=== PATIENT | male | born 1955 | race Caucasian/White ===

== ENCOUNTER → 2016-07-22 | Outpatient (CLI) | payer OTHER ==
--- NOTE | 2016-07-22 15:58 | XCELERA REPORT ---
[address] [address] Lower Extremity Arterial Evaluation Name: RACHELL MENDOZA Age: 61 yrs Gender: Male : 1955 Patient Status: Outpatient Patient Location: Study Date: 07/22/2016 02:18 PM Procedure: A color flow and duplex scan of the lower extremity arteries was performed bilaterally with velocity and waveform anaylsis. Ankle brachial indicies performed. Reason For Study: RIGHT CALF ULCER Ordering Physician: FERNANDO WALLS Performed By: Federico Nichols Measurements and Calculations Right Left MARKETING PROFESSOR PSV 142.2 154.5 cm/sec Prox PFA PSV -75.5 -102.0 cm/sec Dist SFA PSV -109.4 -131.3 cm/sec Dist Pop A PSV 156.3 124.1 cm/sec Dist CURTIS PSV -117.5 122.6 cm/sec Dist IN FLIGHT REFUELING OPERATOR PSV -120.1 128.9 cm/sec Syed Pedis PSV -207.7 117.1 cm/sec Right Side Arterial Evaluation Normal velocity and triphasic waveforms noted from the Common Femoral artery to the infrageniculate vessels. 0 % stenosis noted. Ankle Brachial index was not obtainable, non compressible. Left Side Arterial Evaluation Normal velocity and triphasic waveforms noted from the Common Femoral artery to the infrageniculate vessels. 0 % stenosis noted. Ankle Brachial index was not obtainable, non compressible. Interpretation Summary No hemodynamically significant lesions in the bilateral lower extremities, on duplex imaging, at rest. : FERNANDO WALLS > Fernando Walls
--- NOTE | 2016-07-22 16:37 | XCELERA REPORT ---
[address] [address] Lower Extremity Venous Evaluation Name: RACHELL MENDOZA Age: 61 yrs Gender: Male : 1955 Patient Status: Outpatient Patient Location: Study Date: 07/22/2016 02:35 PM Procedure: A bilateral duplex scan of the lower extremity veins was performed. The evaluation included responses to compression and other maneuvers with patient in the supine and standing positions to assess venous insufficiency. Reason For Study: RIGHT CALF ULCER Ordering Physician: FERNANDO WALLS Performed By: Federico Nichols Right Sided Venous Evaluation Deep venous system evaluation shows patent veins with significant reflux identified. 3.3 second reflux in the CFV. Sapheno Femoral junction:no reflux. Greater Saphenous vein, Proximal thigh: reflux: no reflux. Greater Saphenous vein, mid thigh: reflux: no reflux. Greater Saphenous vein, Distal thigh: reflux:no reflux. Greater Saphenous vein, Proximal below knee: reflux: none Greater Saphenous vein, Mid below knee: reflux: none. Greater Saphenous vein, Distal below knee: reflux: no reflux. No significant Perforators identified. Subcutaneous edema noted in the leg, on ultrasound. Left Sided Venous Evaluation Deep venous system evaluation shows patent veins with significant reflux identified. 1.6 second reflux in the Popliteal vein. Sapheno Femoral junction:no reflux. Greater Saphenous vein, Proximal thigh: reflux: no reflux. Greater Saphenous vein, mid thigh: reflux: no reflux. Greater Saphenous vein, Distal thigh: reflux:no reflux. Greater Saphenous vein, Proximal below knee: reflux: none Greater Saphenous vein, Mid below knee: reflux: none. Greater Saphenous vein, Distal below knee: reflux: no reflux. No significant Perforators identified. Subcutaneous edema noted in the leg, on ultrasound. Interpretation Summary No duplex evidence of DVT or obstruction in the bilateral lower extremities. Limited deep reflux, bilaterally as noted. : FERNANDO WALLS > Fernando Walls
== END ==
LOC: SP 14:09
PROVIDERS: ATTEND Surgery
DX: L97.212 Non-pressure chronic ulcer of right calf with fat layer exposed (principal)
CPT/HCPCS: 93925; 93970

== ENCOUNTER → 2017-04-24 | Outpatient (CLI) | payer OTHER ==
[2017-04-24 15:25] LABS: ABSOLUTE BASOPHILS # (AUTO) 0.1 10^3/uL (0.0-0.2); ABSOLUTE EOSINOPHILS # (AUTO) 0.5 10^3/uL (0.0-0.6); ABSOLUTE MONOCYTES (AUTO) 0.6 10^3/uL (0.1-1.4); ABSOLUTE NEUT (AUTO) 5.2 10^3/uL (1.7-8.2); BASOPHILS % (AUTO) 0.6 % (0-2); EOSINOPHILS % (AUTO) 5.6 % (0-6); HEMATOCRIT 41.4 % (37.9-51.0); HEMOGLOBIN 13.9 g/dL (13.5-17.0); LYMPHOCYTES % (AUTO) 24.5 % (13-45); MEAN CORPUSCULAR HEMOGLOBIN 31.5 pg (27.0-33.4); MEAN CORPUSCULAR HGB CONC 33.6 g/dL (32.0-36.0); MEAN CORPUSCULAR VOLUME 94 fl (80-97); MONOCYTES % (AUTO) 7.2 % (3-13); PLATELET COUNT 241 10^3/uL (150-450); RED BLOOD COUNT 4.41 10^6/uL (4.35-5.55); RED CELL DISTRIBUTION WIDTH 14.8 % (11.5-14.0); SEGMENTED NEUTROPHILS % (AUTO) 62.1 % (42-78); TOTAL CELLS COUNTED % (AUTO) 100 %; WHITE BLOOD COUNT 8.3 10^3/uL (4.0-10.5)
[2017-04-24 16:16] LABS: ALANINE AMINOTRANSFERASE 27 U/L (21-72); ALKALINE PHOSPHATASE 80 U/L (38-126); ANION GAP 11 (5-19); ASPARTATE AMINO TRANSFERASE 30 U/L (17-59); BILIRUBIN,DIRECT 0.4 mg/dL (0.0-0.4); BILIRUBIN,TOTAL 0.6 mg/dL (0.2-1.3); BLOOD UREA NITROGEN 25 mg/dL (7-20); CALCIUM 9.5 mg/dL (8.4-10.2); CARBON DIOXIDE 26 mmol/L (22-30); CHLORIDE 103 mmol/L (98-107); GLUCOSE 113 mg/dL (75-110); POTASSIUM 4.9 mmol/L (3.6-5.0); SODIUM 140.1 mmol/L (137-145); TOTAL PROTEIN 7.4 g/dL (6.3-8.2)
== END ==
LOC: WC 14:07
PROVIDERS: ATTEND Surgery
DX: L97.212 Non-pressure chronic ulcer of right calf with fat layer exposed (principal)
CPT/HCPCS: 36415; 80053; 85025

== ENCOUNTER 2018-12-17 17:52 | Emergency (ER) | payer OTHER ==
[2018-12-17 18:58] VITALS: BP 122/68
--- NOTE | 2018-12-17 19:26 | ER Document Report ---
ED Medical Screen (RME) - General Chief Complaint: Leg Pain Stated Complaint: LEG PAIN Time Seen by Provider: 12/17/18 19:23 Primary Care Provider: FERNANDO MATOS MD [Primary Care Provider] - Follow up as needed Mode of Arrival: Wheelchair Information source: Patient Notes: 63-year-old male presented to ED for complaint of infection to both lower legs. He states he been going to the [facility] and a sending bandages but now the wounds are both weeping draining and smelling bad. He states he went to the [facility] and they sent him to the emergency room. He states about a month ago he had a sulfa type antibiotic but has not been on any antibiotics since then. He states she has a history of high blood pressure back pain and leg pain. He also has peripheral vascular disease. I have greeted and performed a rapid initial assessment of this patient. A comprehensive ED assessment and evaluation of the patient, analysis of test results and completion of medical decision making process will be conducted by an additional ED providers. TRAVEL OUTSIDE OF THE [place] IN LAST 30 DAYS: No - Related Data Allergies/Adverse Reactions: No Known Allergies Allergy (Verified 12/17/18 17:52) Past Medical History - Social History Cigarette use (# per day): No Chew tobacco use (# tins/day): No Frequency of alcohol use: None Drug Abuse: None Physical Exam - Vital signs Vitals: Temp Pulse Resp BP Pulse Ox 97.8 F 75 20 122/68 95 12/17/18 18:56 12/17/18 18:56 12/17/18 18:56 12/17/18 18:56 12/17/18 18:56 Course - Vital Signs Vital signs: Temp Pulse Resp BP Pulse Ox 97.8 F 75 20 122/68 95 12/17/18 18:56 12/17/18 18:56 12/17/18 18:56 12/17/18 18:56 12/17/18 18:56 Doctor's Discharge - Discharge Referrals: FERNANDO MATOS MD [Primary Care Provider] - Follow up as needed
[2018-12-17] MEDS ORDERED: ACETAMINOPHEN 325 MG TABLET PO ONE (19:27)
[2018-12-17 20:10] LABS: ABSOLUTE BASOPHILS # (AUTO) 0.1 10^3/uL (0.0-0.2); ABSOLUTE EOSINOPHILS # (AUTO) 0.4 10^3/uL (0.0-0.6); ABSOLUTE LYMPHOCYTES (AUTO) 1.4 10^3/uL (0.5-4.7); ABSOLUTE MONOCYTES (AUTO) 0.7 10^3/uL (0.1-1.4); ABSOLUTE NEUT (AUTO) 6.2 10^3/uL (1.7-8.2); BASOPHILS % (AUTO) 0.9 % (0-2); EOSINOPHILS % (AUTO) 4.7 % (0-6); HEMATOCRIT 37.3 % (37.9-51.0); HEMOGLOBIN 12.3 g/dL (13.5-17.0); MEAN CORPUSCULAR HEMOGLOBIN 30.9 pg (27.0-33.4); MEAN CORPUSCULAR VOLUME 94 fl (80-97); PLATELET COUNT 256 10^3/uL (150-450); RED BLOOD COUNT 3.97 10^6/uL (4.35-5.55); RED CELL DISTRIBUTION WIDTH 14.1 % (11.5-14.0); SEGMENTED NEUTROPHILS % (AUTO) 70.4 % (42-78); TOTAL CELLS COUNTED % (AUTO) 100 %; WHITE BLOOD COUNT 8.9 10^3/uL (4.0-10.5)
[2018-12-17 20:19] LABS: INTERNATIONAL RATION (INR) 1.79
[2018-12-17 20:41] LABS: ALBUMIN 3.5 g/dL (3.5-5.0); ALKALINE PHOSPHATASE 74 U/L (38-126); ANION GAP 7 (5-19); ASPARTATE AMINO TRANSFERASE 22 U/L (17-59); BILIRUBIN,DIRECT 0.3 mg/dL (0.0-0.4); BILIRUBIN,TOTAL 0.9 mg/dL (0.2-1.3); BLOOD UREA NITROGEN 16 mg/dL (7-20); CALCIUM 8.7 mg/dL (8.4-10.2); CARBON DIOXIDE 29 mmol/L (22-30); CHLORIDE 103 mmol/L (98-107); GLUCOSE 107 mg/dL (75-110); POTASSIUM 4.3 mmol/L (3.6-5.0); TOTAL PROTEIN 7.2 g/dL (6.3-8.2)
--- NOTE | 2018-12-17 22:25 | ER Document Report ---
ED General - General Chief Complaint: Leg Pain Stated Complaint: LEG PAIN Time Seen by Provider: 12/17/18 19:23 Primary Care Provider: Wound Care [Provider Group] - Follow up in 1 week FERNANDO MATOS MD [ACTIVE STAFF] - Follow up as needed Mode of Arrival: Wheelchair Notes: Patient is a 63-year-old male presents the emergency department with a chief complaint of worsening bilateral venous ulcers. He states that he has had them for years and states that he was seen at [facility] a week ago and was not treated with any medications. He has history of being treated for infections in the past. States his skin hurts the most. He describes it as a sharp tingling feeling. He denies any pain in his legs. He is currently on Xarelto. Denies any fever. Has a past medical history of chronic back and knee pain, venous insufficiency, depression, CHF, DVT, vitamin D deficiency. Patient denies any shortness of breath, difficulty breathing, or any other symptoms. TRAVEL OUTSIDE OF THE [place] IN LAST 30 DAYS: No - Related Data Allergies/Adverse Reactions: No Known Allergies Allergy (Verified 12/17/18 19:26) Past Medical History - General Information source: Patient - Social History Smoking Status: Unknown if Ever Smoked Cigarette use (# per day): No Chew tobacco use (# tins/day): No Frequency of alcohol use: None Drug Abuse: None Family History: Reviewed & Not Pertinent Patient has suicidal ideation: No Patient has homicidal ideation: No Review of Systems - Review of Systems Notes: REVIEW OF SYSTEMS: CONSTITUTIONAL : Denies recent illness. Denies recent unintentional weight loss. Denies fever, chills, or sweats. EENT: Denies eye, ear, throat, or mouth pain, discharge, or symptoms. Denies nasal or sinus congestion. CARDIOVASCULAR: Denies chest pain. RESPIRATORY: Denies shortness of breath, cough, congestion, difficulty breathing, or wheezing. GASTROINTESTINAL: Denies nausea, vomiting, and diarrhea. Denies abdominal pain. Denies constipation. GENITOURINARY: Denies difficulty urinating, burning, blood in urine, urgency or frequency. MUSCULOSKELETAL: Denies neck and back pain. See HPI. SKIN: See HPI. HEMATOLOGIC : Denies easy bruising or bleeding. LYMPHATIC: Denies swollen, painful, enlarged glands. NEUROLOGICAL: Denies no numbness or tingling denies weakness. Denies headache. Denies altered mental status. Denies alteration in speech. PSYCHIATRIC: Denies stress, anxiety, alteration in sleep patterns, or depression. All other systems reviewed and negative. Physical Exam - Vital signs Vitals: Temp Pulse Resp BP Pulse Ox 97.8 F 75 20 122/68 95 12/17/18 18:56 12/17/18 18:56 12/17/18 18:56 12/17/18 18:56 12/17/18 18:56 - Notes Notes: PHYSICAL EXAMINATION: GENERAL: Obese, no acute distress. HEAD: Normocephalic, atraumatic. EYES: PERRL, conjunctiva normal, all extraocular movements intact, sclera nonicteric ENT: Moist mucous membranes. NECK: Supple, no noticeable swelling, redness, rash. Normal range of motion. LUNGS: Equal breath sounds bilaterally and clear to auscultation. No wheezes rales or rhonchi. CARDIOVASCULAR: S1-S2, regular rate, regular rhythm. Radial pulses 1+. ABDOMEN: Normoactive bowel sounds. Soft, nontender, no guarding, no rebound tenderness, and no masses palpated. EXTREMITIES: Normal strength and range of motion, no pitting or edema. No cyanosis. NEUROLOGICAL: Moves all extremities upon command. Strength 4/5 in lower extrem ities. I have it a 5 in upper extremities. PSYCH: Normal mood, normal affect. SKIN: Warm. Venous stasis ulcers noted to lower extremities from medial ankle to mid calf bilaterally. Course - Re-evaluation Re-evalutation: 12/18/18 00:05 Patient's hematology does not show a leukocytosis. His hemoglobin is 12.3 and hematocrit is 37.3, which is only slightly lower than his previous visit in April 2017. His chemistries are unremarkable at this time. Urinalysis is unremarkable.'s I had Dr. Hooker evaluate the patient. He states that he would recommend surgery to evaluate the patient's venous stasis ulcers and get recommendations for wound care. I called contacted Dr. Torres, the surgeon to evaluate the patient. He is requesting that Unna boot be brought to bedside so he can evaluate the patient and applied the Unna boots. 12/18/18 01:21 Dr. Torres arrived at bedside and patient was placed in Unna boots. He does not recommend oral antibiotics or admission at this time. Patient will follow- up with the wound clinic. Dr. Girard would like him to be at the wound care clinic this week. We also gave him another package of Unna boots to help with healing. Vital signs are stable and a very low suspicion for sepsis. Discharge instructions were given to the patient. Follow-up precautions were given. Ashleigh bal discharge instructions were given to the patient. They verbalized understanding. They are stable for discharge. - Vital Signs Vital signs: Temp Pulse Resp BP Pulse Ox 97.8 F 75 20 122/68 95 12/17/18 18:56 12/17/18 18:56 12/17/18 18:56 12/17/18 18:56 12/17/18 18:56 - Laboratory Result Diagrams: 12/17/18 19:58 12/17/18 19:58 Laboratory results interpreted by me: 12/17/18 12/17/18 12/17/18 19:58 19:58 20:10 RBC 3.97 L Hgb 12.3 L Hct 37.3 L RDW 14.1 H PT 21.0 H Urine Urobilinogen 2.0 H Urine Ascorbic Acid 40 H Discharge - Discharge Clinical Impression: Venous stasis of lower extremity, Bilateral leg pain Condition: Stable Disposition: HOME, SELF-CARE Additional Instructions: You were seen today in the emergency department for leg pain. Your labs are normal at this time. The surgeon saw you and we placed you in Unna boots. You are also being sent home with materials to reapply the boots. In a few days if they need to be reapplied, you can apply them. Please follow-up with the wound care clinic this week. Please follow-up with your primary care provider in regards to this visit. Please elevate your legs on pillows. Make sure they are above your heart. Continue to take your pain medication as prescribed. Referrals: FERNANDO MATOS MD [ACTIVE STAFF] - Follow up as needed Wound Care [Provider Group] - Follow up in 1 week
[2018-12-17 22:59] LABS: APPEARANCE,URINE SLIGHTLY-CLOUDY; BILIRUBIN,URINE NEGATIVE (NEGATIVE); GLUCOSE, URINE NEGATIVE (NEGATIVE); KETONES,URINE NEGATIVE (NEGATIVE); LEUKOCYTE ESTERASE,URINE NEGATIVE (NEGATIVE); NITRITE,URINE NEGATIVE (NEGATIVE); PROTEIN,URINE NEGATIVE (NEGATIVE); URINE SPECIFIC GRAVITY 1.025
[2018-12-17 23:06] LABS: COLOR,URINE DARK YELLOW
[2018-12-18] MEDS ORDERED: OXYCODONE HCL IR 5 MG TABLET PO ONE (00:41)
--- NOTE | 2018-12-18 01:42 | PDOC CONSULTATION ---
Consultation Consult Date: 12/18/18 Provider Consulted: [facility] Consult reason:: chronic venous stasis dermatitis History of Present Illness Admission Date/PCP: [facility] History of Present Illness: RACHELL MENDOZA is a 63 year old male with chronic venous insufficiency, depression, CHF, DVT, and vitamin D deficiency came into the ED because of worsening venous dermatitis of both lower legs. He was seen at [facility] week but was not given any medications. Denies any fever but had occasional chills. Social History Smoking Status: Unknown if Ever Smoked Family History Parental Family History Reviewed: Yes Children Family History Reviewed: No Sibling(s) Family History Reviewed.: No Medication/Allergy Allergies/Adverse Reactions: No Known Allergies Allergy (Verified 12/17/18 19:26) Review of Systems Constitutional: PRESENT: as per HPI Physical Exam Vital Signs: Temp Pulse Resp BP Pulse Ox 97.8 F 75 20 122/68 95 12/17/18 18:56 12/17/18 18:56 12/17/18 18:56 12/17/18 18:56 12/17/18 18:56 Intake & Output 12/16/18 12/17/18 12/18/18 06:59 06:59 06:59 Weight 184.159 kg General appearance: PRESENT: mild distress Head exam: PRESENT: atraumatic Eye exam: PRESENT: conjunctiva pink Mouth exam: PRESENT: moist Neck exam: PRESENT: full ROM Respiratory exam: PRESENT: clear to auscultation julio Cardiovascular exam: PRESENT: RRR Pulses: PRESENT: normal radial pulses Vascular exam: PRESENT: normal capillary refill GI/Abdominal exam: PRESENT: soft Rectal exam: PRESENT: deferred Extremities exam: PRESENT: other - Diffuse dermatitis of both lower legs with swelling of the upper calf up to the thighs. Musculoskeletal exam: PRESENT: ambulatory Neurological exam: PRESENT: alert, oriented to person, oriented to place, oriented to time, oriented to situation Psychiatric exam: PRESENT: appropriate affect Skin exam: PRESENT: normal color, warm Results Laboratory Results: 12/17/18 19:58 12/17/18 19:58 12/17/18 12/17/18 12/17/18 19:58 19:58 20:10 WBC 8.9 RBC 3.97 L Hgb 12.3 L Hct 37.3 L MCV 94 MCH 30.9 MCHC 33.0 RDW 14.1 H Plt Count 256 Seg Neutrophils % 70.4 Sodium 139.3 Potassium 4.3 Chloride 103 Carbon Dioxide 29 Anion Gap 7 BUN 16 Creatinine 0.91 Est GFR ( Amer) > 60 Glucose 107 Calcium 8.7 Total Bilirubin 0.9 AST 22 Alkaline Phosphatase 74 Total Protein 7.2 Albumin 3.5 Urine Color DARK YELLOW Urine Appearance SLIGHTLY-CLOUDY Urine pH 5.0 Ur Specific [place] 1.025 Urine Protein NEGATIVE Urine Glucose (UA) NEGATIVE Urine Ketones NEGATIVE Urine Blood NEGATIVE Urine Nitrite NEGATIVE Ur Leukocyte Esterase NEGATIVE Urine WBC (Auto) 1 Urine RBC (Auto) 1 Assessment & Plan - Diagnosis (1) Bilateral leg pain Is this a current diagnosis for this admission?: Yes (2) Venous stasis of lower extremity Is this a current diagnosis for this admission?: Yes - Time Time Spent: 30 to 50 Minutes - Inpatient Certification Based on my medical assessment, after consideration of the patient's comorbidities, presenting symptoms, or acuity I expect that the services needed warrant INPATIENT care.: No I certify that my determination is in accordance with my understanding of Medicare's requirements for reasonable and necessary INPATIENT services [42 CFR 412.3e].: No - Plan Summary Plan Summary: Unna boots were placed along both lower extremities from below below the knee down to the foot with ER PA and nurse. To call dudley were placed over the Unna boot for each leg. Patient will need to keep his legs above the heart when lying down. He needs to be followed up at the wound care center this week.
== END 2018-12-18 01:45 | disposition home or self-care (01) ==
LOC: ER 17:52
DX: I87.2 Venous insufficiency (chronic) (peripheral) (principal); R20.2 Paresthesia of skin; M79.604 Pain in right leg; M79.605 Pain in left leg; Z79.02 Long term (current) use of antithrombotics/antiplatelets; Z86.718 Personal history of other venous thrombosis and embolism
CPT/HCPCS: 36415; 80053; 81001; 85025; 85610; 87040; 99284